=== PATIENT | female | born 1995 | race Caucasian/White ===

== ENCOUNTER 2019-10-29 19:58 | Outpatient (CLI) | payer BC ==
--- NOTE | 2019-11-15 11:21 | SLEEP ---
[address] [address] SLEEP STUDY REPORT Name: YOAV FORD [id number] Admission: 10/29/19 Attend Phys: Gloria Aguilar DO Discharge: Date of : 89 Report #: [id number] THIS REPORT FOR: //name// CC: Lucila Aguilar This study has been reviewed in its entirety by a board certified sleep specialist DATE OF SERVICE: 10/29/2019 NAME OF PROCEDURE: Sleep study following by an MSLT. INDICATION FOR THE PROCEDURE: Daytime sleepiness. INTERPRETATION: The patient first underwent a polysomnogram in our sleep lab. The total duration of the sleep study was 590 minutes out of which she was asleep for 367 minutes. This duration is greater than 6 hours and therefore the MSLT performed the next morning is valid. The patient's sleep efficiency was reduced to 62.2%. Sleep onset was markedly delayed occurring 1 hour and 47 minutes after lying down in bed. REM onset occurred 273 minutes after sleep onset. N1 sleep duration was 5%, N2 duration was 64%, N3 duration was 13% and REM duration was 19%. Mean heart rate during this sleep study was 66. Limb movement index was 6.5 and no periodic limb movements were detected. Arousal index was elevated to 43.5. We did record 5 hypopneas in addition to 1 central apnea 71 respiratory effort related arousals during the sleep study. The apnea-hypopnea index was 1.0 with a respiratory disturbance index mildly elevated to 6.0. There are no desaturations recorded during the sleep study. As the total duration of sleep time recorded was greater than 6 hours, the MSLT performed next morning is valid and we did perform an MSLT the next morning. The MSLT consisted of 5 nap opportunities. The mean sleep latency was 17 minutes during the first nap, 16 minutes and 30 seconds during the second nap, 20 minutes and 30 seconds during the third nap. There was no sleep during the fourth nap and sleep latency was 20 minutes and 30 seconds during the fifth nap. There is no REM sleep recorded during any of these nap times and therefore, there is no sleep onset REM. The mean sleep latency was normal at 14 minutes and 54 seconds. IMPRESSION: 1. The MSLT is normal and no hypersomnia or narcolepsy was detected during the MSLT (please not certain individuals can hypersomnia which is not detected during an MSLT) [place] [address] SLEEP STUDY REPORT Name: YOAV FORD Room: [facility]#: [id number] Admission: 10/29/19 Attend Phys: Gloria Aguilar DO Discharge: Date of : 89 Report #: [id number] 2. The MSLT results are valid considering a normal apnea-hypopnea index during the sleep study of 1.0 with a sleep time recorded greater than 6 hours. 3. There is a marked prolongation in the sleep onset to over 1 hour and 47 minutes after lying down in bed. There is also an elevation in arousal index at 43.5 and reduction in sleep efficiency to 62.2. The patients with psychophysiological insomnia, who is spending too much time in bed, patients with a delayed sleep phase syndrome can have these findings on the sleep study, but these findings are not diagnostic of either of these orders. RECOMMENDATIONS: 1. Clinical correlation is advised regarding management of this patient's sleep complaints. If clinically appropriate, then may consider evaluation for SLEEP restriction therapy. 2. Recommend evaluating further regarding the patient's sleep hygiene. It is possible that the patient is spending too much time in bed. 3. Recommend evaluation regarding presence or otherwise of delayed sleep phase syndrome. <ELECTRONICALLY SIGNED> By: Emanuel Marcum MD 11/15/19 [id number] Marcum MD /nt
== END 2019-10-30 08:00 | disposition home or self-care (01) ==
LOC: M.SLEEPLAB 19:58
PROVIDERS: ATTEND Psychiatry & Neurology Neurology
DX: G47.19 Other hypersomnia (principal)